=== PATIENT | female | born 1970 | race Caucasian/White ===

== ENCOUNTER 2023-08-07 23:33 | Emergency (ER) | payer MEDICARE ==
[2023-08-07 23:46] VITALS: BP 101/71; O2SAT 100
[2023-08-07] MEDS ORDERED: KETOROLAC 30 MG/ML VIAL IM STA (23:58)
[2023-08-07 23:59] LABS: BILIRUBIN,URINE NEGATIVE (NEGATIVE); GLUCOSE, URINE (UA) NEGATIVE (NEGATIVE); KETONES,URINE (UA) NEGATIVE (NEGATIVE); LEUKOCYTE ESTERASE, URINE NEGATIVE (NEGATIVE); NITRITE,URINE NEGATIVE (NEGATIVE); OCCULT BLOOD,URINE NEGATIVE (NEGATIVE); PH,URINE 6.5 PH (5.0-7.5); PROTEIN,URINE NEGATIVE (NEGATIVE); UROBILINOGEN,URINE 0.2 (NORMAL) E.U./dL (NORMAL)
--- NOTE | 2023-08-08 | ED Physician Documentation ---
History of Present Illness - Stated complaint Stated Complaint: BACK PX - Chief complaint Chief Complaint: Back Pain - History obtained from History obtained from: Patient - Additonal information Additional information: 53yF p/w L lower back pain X 2 days, slowly progressing. patient is sleeping on new mattress and thinks this may be the cause. denies specific injury. denies urinary sx. Review of Systems Constitutional: denies: Fever, Chills GI: denies: Abdominal Pain, Diarrhea : denies: Dysuria, Frequency, Hematuria Musculoskeletal: reports: Back pain. denies: Neck pain, Extremity pain PD PAST MEDICAL HISTORY - Present Medications Home Medications: Ambulatory Orders Medication Instructions Recorded Confirmed Ketorolac [Toradol] 10 mg PO Q6H PRN #20 tablet 08/07/23 - Allergies Allergies/Adverse Reactions: Allergies Allergy/AdvReac Type Severity Reaction Status Date / Time codeine AdvReac Unknown Verified 08/07/23 23:45 PD ED PE NORMAL - Vitals Vital signs reviewed: Yes - General General: Alert and oriented X 3, No acute distress, Well developed/nourished - HEENT HEENT: Atraumatic, PERRL, EOMI - Back Back: No CVA TTP, No spinal TTP, Other (L lower cloth washer back tender in muscular distribution) - Derm Derm: Normal color, Warm and dry, No rash - Extremities Extremities: Other (csm intact BL LE) Results - Vitals Vitals: Vital Signs - 24 hr 08/07/23 08/07/23 23:38 23:49 Temperature 36.1 C L Heart Rate 88 Respiratory 20 22 Rate Blood Pressure 101/71 O2 Saturation 100 Oxygen O2 Source Room air PD Medical Decision Making - ED course ED course: 53yM presents to the ED with L lower back spasm, treated with IM toradol with improvement. rx sent to pharmacy .return precautions given. plan to f/u pcp. Departure - Departure Disposition: Home, Self Care Clinical Impression: Muscle spasm Condition: Stable Instructions: ED Low Back Pain Injury Prescriptions: Ketorolac [Toradol] 10 mg PO Q6H PRN #20 tablet PRN Reason: Pain Comments: You were seen in the emergency department for Lower back pain likely due to muscle spasm. Prescription for Toradol, and a strong anti-inflammatory medicine was sent electronically to [facility]. Please follow-up with a primary care provider (pcp list provided) and return to the emergency department if you have any new or worsening symptoms or other concerns.
[2023-08-08 00:13] LABS: CLARITY,URINE CLEAR (CLEAR)
== END 2023-08-08 00:50 | disposition home or self-care (01) ==
LOC: ED 23:33
DX: M62.830 Muscle spasm of back (principal)
CPT/HCPCS: 81001; 81003; 87086; 96372; 99283

== ENCOUNTER 2023-11-30 10:02 | Emergency (ER) | payer MEDICARE ==
--- NOTE | 2023-11-30 10:24 | ED Physician Documentation ---
PD HPI WOUND RECHECK - Stated complaint Stated Complaint: RT ARM DOG BITE - Chief complaint Chief Complaint: Wound - Histroy obtained from History obtained from: Patient - Additional information Additional information: Right-handed woman who is up-to-date on tetanus (July 2020) broke up a dog fight with multiple lacerations and puncture injuries about the right wrist. Also diminutive laceration on the left thumb. Pain is severe. PD PAST MEDICAL HISTORY - Past Medical History Past Medical History: No - Past Surgical History Past Surgical History: No - Present Medications Home Medications: Ambulatory Orders Medication Instructions Recorded Confirmed Amox/Clav 875/125 [Augmentin] 1 each PO Q12H #14 tablet 11/30/23 Oxycodone HCl/Acetaminophen 1 - 2 each PO Q6H PRN #10 tablet 11/30/23 [Percocet 5-325 mg Tablet] - Allergies Allergies/Adverse Reactions: Allergies Allergy/AdvReac Type Severity Reaction Status Date / Time codeine AdvReac Unknown Verified 11/30/23 10:19 - Social History Does the pt smoke?: Yes Smoking Status: Current every day smoker Does the pt drink ETOH?: Yes ETOH Use: Beer Substance Use and Type: Marijuana - Immunizations Immunizations are current?: Yes - POLST Patient has POLST: No PD ED PE NORMAL - Vitals Vital signs reviewed: Yes - General General: Alert and oriented X 3, No acute distress - Extremities Extremities: Other (see mdm text box too small) - Neuro Neuro: Alert and oriented X 3, Normal speech Results - Vitals Vitals: Vital Signs - 24 hr 11/30/23 11/30/23 10:14 11:03 Temperature 35.6 C L Heart Rate 97 82 Respiratory 20 16 Rate Blood Pressure 110/98 H 118/71 O2 Saturation 98 100 Oxygen O2 Source Room air - Rads (name of study) R wrist XR Relevant Findings:: Final report received, EMP independent interpretation of test Procedures - Laceration (location) R wrist Length in cm: 5 Wound type: Linear (3 total lacerations measuring 5 cm in total. There were also multiple puncture wounds that were irrigated but not closed.) Neurovascular status: Sensory intact, Motor intact, Vascular intact Anesthesia: Lidocaine 1%, With bicarb Wound preparation: Hibiclens, Irrigated copiously NS Skin layer closure: Nylon, Interrupted, Size #-0 - enter number (4-0), Sutures - enter # (5Loosely closed with only 5 sutures given the mechanism.) Other: Patient tolerated well, No complications, Neurovascular intact, Tetanus UTD PD Medical Decision Making - ED course ED course: R wrist exam: She is numerous puncture wounds and lacerations mostly on the dorsum of the left wrist. There are a few larger ones that do require specific closure mostly over the first metacarpal area and 1 proximal to the ulnar head. She has normal neurovascular function throughout the hand. There is a chronic deformity there from prior break which she says has not changed. The largest of the lacerations were closed loosely. Started on Augmentin and given oxycodone here. X-ray of the right wrist demonstrated soft tissue swelling without foreign body or fracture. Departure - Departure Disposition: 01 Home, Self Care Clinical Impression: Animal bite with open wound Condition: Good Record reviewed to determine appropriate education?: Yes Instructions: ED Bite Animal General Prescriptions: Amox/Clav 875/125 [Augmentin] 1 each PO Q12H #14 tablet Oxycodone HCl/Acetaminophen [Percocet 5-325 mg Tablet] 1 - 2 each PO Q6H PRN #10 tablet PRN Reason: pain Comments: I sent your prescriptions electronically to the [facility] in [place]. If pain is mild take Tylenol and/or ibuprofen for the pain. You can also elevate it. Come back for any signs of infection which would include: Redness, swelling, drainage, increased pain, or fevers. You can wash it soap and water. Keep it covered and moist with bacitracin ointment which is available over the counter; avoid neosporin. Follow-up with your physician in about 14 days for suture removal. I am prescribing a short course of narcotic pain medication for you. These are potentially dangerous and addictive medications that should be used carefully. These medications may constipate you. Take an [id number] stool softener (docusate) twice daily with plenty of water while taking these medications. If you go 24 hours without a bowel movement, take [id number] miralax, per package instructions. Do not drink or drive while taking these medications. If you received narcotic or sedating medications [facility], do not drive for 24 hours. Store this medication in a safe, secure place and out of reach of children. It is a violation of federal law to give or sell this medication to another person or to use in a manner other than prescribed. The ED will not refill narcotic prescriptions, including prescriptions lost or stolen. To dispose of unwanted medications: 1. [facility][Note 3][facility] provides a drop box for medication in pill form only (no liquids) 8:00 am to 4:30 p.m. Friday-Friday in the lobby of the [facility][Note 3] [place], [address] [place] [address]. Empty pills into ziplock bag before disposal. Call [phone] for information. 2.[employer] is a free service available to all [facility] residents. Go to [email or web address] Note that many narcotic pain relievers also contain Tylenol/acetaminophen. Please ensure that your total dose of acetaminophen from all sources does not exceed 3 g (3000 mg) per day. Forms: PCP List Discharge Date/Time: 11/30/23 11:09
[2023-11-30] MEDS: BUFFERED LIDOCAINE 10 ML SYRINGE SUBQ STA (10:37)
[2023-11-30] MEDS: AMOX/CLAV 875 MG/125 MG TABLET PO STA (10:37)
[2023-11-30] MEDS: oxyCODONE 5 MG TABLET PO STA (10:37)
--- NOTE | 2023-11-30 10:49 | XRAY Report ---
PROCEDURE: Wrist 3+V RT INDICATIONS: dog bites TECHNIQUE: 3 views of the wrist were acquired. COMPARISON: None. FINDINGS: Bones: Posterior fixation of the distal radius with plate and screw. Soft tissue emphysema along the dorsal wrist. No retained foreign bodies identified. Chronic fracture of the ulnar styloid without a cute fracture identified. No dislocations. No suspicious bony lesions. Soft tissues: No suspicious soft tissue calcifications or masses. IMPRESSION: Soft tissue swelling without acute fracture or retained radio dense foreign body identified. Reviewed by: Tomás Conway MD on 11/30/2023 9:47 AM LORENZO Approved by: Tomás Conway MD on 11/30/2023 9:47 AM LORENZO Station ID: [id number]
[2023-11-30] MEDS: BACITRACIN ZINC OINT 1 PACKET TOP STA (10:52)
[2023-11-30 11:12] VITALS: BP 118/71; O2SAT 100
== END 2023-11-30 11:09 | disposition home or self-care (01) ==
LOC: ED 10:02
DX: S61.552A Open bite of left wrist, initial encounter (principal); S61.059A Open bite of unspecified thumb without damage to nail, initial encounter; W54.0XXA Bitten by dog, initial encounter; F17.200 Nicotine dependence, unspecified, uncomplicated
CPT/HCPCS: 12002; 73110; 99283; 99284; A9270